=== PATIENT | female | born 1980 | race Caucasian/White ===

== ENCOUNTER 2018-05-17 15:41 | Emergency (ER) | payer MEDICAID, OTHER ==
[~2018-05-17 15:41] MED LIST: PREN1TAB80 PO
[2018-05-17] MEDS ORDERED: ACETAMINOPHEN EXTRA STRENGTH 500 MG TABLET ONE (15:57)
[2018-05-17] MEDS ORDERED: ONDANSETRON ODT 4 MG TAB ONE (15:57)
[2018-05-17 16:10] LABS: APPEARANCE,URINE Clear (CLEAR); BILIRUBIN,URINE Small (NEGATIVE); COLOR,URINE Dark Yellow (YELLOW); GLUCOSE, URINE (UA) Negative (NEGATIVE); KETONES,URINE Trace mg/dL (NEGATIVE); LEUKOCYTE ESTERASE ,URINE Trace (NEGATIVE); NITRATE,URINE Negative (NEGATIVE); OCCULT BLOOD,URINE Negative (NEGATIVE); PH,URINE 5.5 (5.0-8.0); PROTEIN,URINE Trace (NEGATIVE)
[2018-05-17 16:12] LABS: HCG,QUAL RESULT NEGATIVE (NEGATIVE)
[2018-05-17 16:22] LABS: BACTERIA,URINE Rare /HPF (None Seen); CALCIUM OXALATE CRYSTALS,UR Few /LPF (None Seen); MUCUS,URINE Few LPF (None Seen); RBC,URINE None Seen /HPF (0-1)
[2018-05-17] MEDS ORDERED: IBUPROFEN 600 MG TABLET ONE (16:28)
[2018-05-17 16:29] LABS: RAPID GROUP A STREP NEGATIVE (NEGATIVE)
== END 2018-05-17 16:55 | disposition home or self-care (01) ==
LOC: EDH 15:41
DX: B34.9 Viral infection, unspecified (principal)
CPT/HCPCS: 81001; 81025; 87088; 87804; 87880